=== PATIENT | female | born 1995 | race Caucasian/White ===

== ENCOUNTER 2018-07-06 15:56 | Emergency (ER) | payer BC, OTHER ==
[2018-07-06 16:13] VITALS: BP 120/80
--- NOTE | 2018-07-06 16:32 | UC ---
Minor Trauma HPI - HPI Summary HPI Summary: tripped at work 3 days ago injuring left arm and left ribs---left arm is bruised but does not cause her any pain or symptoms---left anterior ribs just under breat is tender to touch no bruising - History of Current Complaint Chief Complaint: UCUpperExtremity Stated Complaint: RIB INJ Time Seen by Provider: 07/06/18 16:20 Hx Obtained From: Patient Hx Last Menstrual Period: 06/21 ?: No Onset/Duration: Sudden Onset, Lasting Days - 3, Still Present Onset Of Pain: Immediate Pain Intensity: 7 Pain Scale Used: 0-10 Numeric Mechanism Of Injury: Blunt Trauma, Fall From A Standing Position Aggravating Factor(s): Coughing, Deep Breaths Alleviating Factor(s): Nothing - Allergies/Home Medications Allergies/Adverse Reactions: Allergies Allergy/AdvReac Type Severity Reaction Status Date / Time No Known Allergies Allergy Verified 07/06/18 16:13 Home Medications: Home Medications Ibuprofen 400 mg PO DAILY 07/06/18 [History Confirmed 07/06/18] PMH/Surg Hx/FS Hx/Imm Hx Previously Healthy: Yes - Surgical History Surgical History: None - Family History Known Family History: Positive: None - Social History Occupation: Employed Full-time Lives: With Family Alcohol Use: None Substance Use Type: None Smoking Status (MU): Never Smoked Tobacco Review of Systems Constitutional: Negative Skin: Negative Eyes: Negative ENT: Negative Respiratory: Negative Cardiovascular: Negative Gastrointestinal: Negative Genitourinary: Negative Motor: Negative Neurovascular: Negative Musculoskeletal: Arthralgia - left anterior ribs Neurological: Negative Psychological: Negative Is Patient Immunocompromised?: No All Other Systems Reviewed And Are Negative: Yes Physical Exam Triage Information Reviewed: Yes Appearance: Well-Appearing, No Pain Distress, Well-Nourished Vital Signs: Initial Vital Signs Temp 97.9 F 07/06/18 16:09 Pulse 84 07/06/18 16:09 Resp 16 07/06/18 16:09 BP 120/80 07/06/18 16:09 Pulse Ox 100 07/06/18 16:09 Vital Signs Reviewed: Yes Eye Exam: Normal Eyes: Positive: Conjunctiva Clear ENT Exam: Normal ENT: Positive: Normal ENT inspection, Hearing grossly normal. Negative: Nasal congestion, Nasal drainage, Trismus, Muffled voice, Hoarse voice Dental Exam: Normal Neck exam: Normal Neck: Positive: Supple, Nontender Respiratory Exam: Normal Respiratory: Positive: Chest non-tender, Lungs clear, Normal breath sounds, No respiratory distress, No accessory muscle use Cardiovascular Exam: Normal Cardiovascular: Positive: RRR, Pulses Normal, Brisk Capillary Refill Abdominal Exam: Normal Abdomen Description: Positive: Nontender, No Organomegaly, Soft. Negative: CVA Tenderness (R), CVA Tenderness (L), Distended, Guarding, Peritoneal Signs Bowel Sounds: Positive: Present Musculoskeletal Exam: Normal Musculoskeletal: Positive: Strength Intact, ROM Intact, No Edema Neurological Exam: Normal Neurological: Positive: Alert, Muscle Tone Normal Psychological Exam: Normal Skin Exam: Other Skin: Positive: Other - bruise on left upper arm Diagnostics - Radiology No standard instances Xray Interpretation: No Acute Changes Radiology Interpretation Completed By: ED Physician, Radiologist - Patient Name : REGINE PETERSON Medical Record#: [id number] Ordering Physician: Zena Souza NP Acct.#: [id number] : 1995 Age: 23 Sex: F Location: [facility] Exam Date : 07/06/18 1630 ADM Status: REG ER Order Information: RIBS LT UNI W/PA CH MIN 3 VWS Accession Number: [id number] CPT: 68918 Indication: LEFT anterior rib pain following injury 3 days ago. Comparison: No relevant prior exams available on the [facility] PACS for comparison. Technique: Dual energy PA chest and three-view LEFT unilateral rib series. Report: LEFT chest wall soft tissue swelling corresponding with the region of clinical concern. No rib fracture, pulmonary contusion, pleural effusion, or pneumothorax evident. The heart, pulmonary vasculature, and mediastinal contours are unremarkable. IMPRESSION: #. Negative for rib fracture or pneumothorax. <Electronically signed by Milo Nielsen MD in OV> 07/06/181723 Dictated By: Milo Nielsen MD Dictated Date/ Time: 07/06/181723 Transcribed Date/Time: 07/06/181721 Copy to: CC:Zena Souza NP; Tate Patel MD; No Primary Care Phys,[facility] Imaging - [facility] - [facility] - [facility] [address] [address] ph [phone]) ph ) ph ([phone]) This report is only to be considered final once signed by the Provider(s) as displayed in the "<Electronically Signed by >" field (s). Absence of a signature indicates the report is in a draft status and still needs to be finalized. In the event this document was created by someone other than the signing Provider, the individual initiating the document will be listed in the "Entered by:" or "Dictated by:" maldonado. 1 of 1 Minor Trauma Course/Dx - Course Course Of Treatment: ice, ibuprofen splint to cough and deep breath, follow with pcp prn - Differential Dx/Diagnosis Provider Diagnoses: right rib contusion Discharge - Sign-Out/Discharge Documenting (check all that apply): Patient Departure All imaging exams completed and their final reports reviewed: Yes - Discharge Plan Condition: Stable Disposition: HOME Patient Education Materials: Ibuprofen (By mouth), Contusion in Adults (ED), Ice Pack Application (ED), Rib Contusion (ED) Referrals: KALANI Heard [Medical Doctor] - If Needed - Billing Disposition and Condition Condition: STABLE Disposition: Home - Attestation Statements Provider Attestation: Per institutional requirements, I have reviewed the chart, however, I was not consulted specifically or made aware of this patient by the midlevel provider. I did not personally evaluate, interact with , or disposition this patient.
--- NOTE | 2018-07-06 17:27 | RAD ---
Indication: LEFT anterior rib pain following injury 3 days ago. Comparison: No relevant prior exams available on the [facility] PACS for comparison. Technique: Dual energy PA chest and three-view LEFT unilateral rib series. Report: LEFT chest wall soft tissue swelling corresponding with the region of clinical concern. No rib fracture, pulmonary contusion, pleural effusion, or pneumothorax evident. The heart, pulmonary vasculature, and mediastinal contours are unremarkable. IMPRESSION: #. Negative for rib fracture or pneumothorax.
== END 2018-07-06 17:27 | disposition home or self-care (01) ==
LOC: UCCORT 15:56
DX: S20.211A Contusion of right front wall of thorax, initial encounter (principal); W18.40XA Slipping, tripping and stumbling without falling, unspecified, initial encounter; Y92.9 Unspecified place or not applicable
CPT/HCPCS: 84702; 99201; G0463